=== PATIENT | female | born 1990 | race Caucasian/White ===

== ENCOUNTER 2017-10-04 18:15 | Emergency (ER) | payer MEDICAID ==
[2017-10-04 19:56] LABS: BASOPHILS 0.2 % (0-2); EOSINOPHILS 1.6 % (0-7); HEMATOCRIT 42.3 % (36.0-48.0); HEMOGLOBIN 14.4 g/dL (12-16); IMMATURE GRANULOCYTES 0.3 % (0-5); LYMPHOCYTES 14.9 % (15-50); MEAN PLATELET VOLUME 10.6 fL (7.4-10.4); PLATELET COUNT 283 10x3/uL (130-400); RDW 13.3 % (11.5-14.5); WBC 15.7 10x3/uL (4.8-10.8)
[2017-10-04 20:01] LABS: APPEARANCE CLEAR (CLEAR); COLOR COLORLESS (YELLOW); SPECIFIC GRAVITY 1.005 (1.005-1.020)
[2017-10-04 20:02] LABS: ALBUMIN 4.6 g/dL (3.4-5.0); ALKALINE PHOSPHATASE 65 U/L (46-116); ALT (SGPT) 20 U/L (10-68); BILIRUBIN NEGATIVE (NEGATIVE); C-REACTIVE PROTEIN 0.5 mg/dL (0.0-0.9); CALC OSMOLALITY 281 mosm/kg (275-300); CALCIUM 9.9 mg/dL (8.5-10.1); CARBON DIOXIDE 24.9 mmol/L (21.0-32.0); CHLORIDE - SERUM 102 mmol/L (98-107); CREATININE - SERUM 0.7 mg/dL (0.6-1.3); GLUCOSE 92 mg/dL (74-106); GLUCOSE NEGATIVE (NEGATIVE); KETONE NEGATIVE (NEGATIVE); NITRITE NEGATIVE (NEGATIVE); POTASSIUM - SERUM 3.9 mmol/L (3.5-5.1); PROTEIN NEGATIVE (NEGATIVE); PROTEIN - SERUM 8.3 g/dL (6.4-8.2); SODIUM 141 mmol/L (136-145); UREA NITROGEN 15 mg/dL (7-18); UROBILINOGEN NORMAL (NORMAL); eGFR NON AFRICAN AMERICAN > 90 mL/min (90-120)
[2017-10-04 20:19] LABS: HCG SERUM NEGATIVE (NEGATIVE)
== END 2017-10-04 21:35 | disposition home or self-care (01) ==
LOC: D.ER 18:15
PROVIDERS: Family Medicine
DX: J11.1 Influenza due to unidentified influenza virus with other respiratory manifestations (principal)

== ENCOUNTER 2017-10-06 10:25 | Emergency (ER) | payer MEDICAID | END 2017-10-06 12:13 | disposition home or self-care (01) | LOC: D.ER 10:25 | DX: J45.901 Unspecified asthma with (acute) exacerbation (principal); F17.200 Nicotine dependence, unspecified, uncomplicated ==

== ENCOUNTER → 2017-10-25 14:43 | Outpatient (CLI) | payer MEDICAID | END | disposition home or self-care (01) | LOC: D.RAD 14:43 | DX: R05 Cough (principal) ==

== ENCOUNTER 2017-10-30 20:42 | Emergency (ER) | payer MEDICAID ==
[2017-10-30 21:29] LABS: BASOPHILS 0.2 % (0-2); HEMATOCRIT 39.2 % (36.0-48.0); HEMOGLOBIN 13.4 g/dL (12-16); IMMATURE GRANULOCYTES 0.2 % (0-5); MCHC 34.2 g/dL (31.0-37.0); MCV 93.6 fL (80.0-100.0); MEAN PLATELET VOLUME 9.9 fL (7.4-10.4); MONOCYTES 8.6 % (2-11); PLATELET COUNT 298 10x3/uL (130-400); RBC 4.19 10x6/uL (4.00-5.40); RDW 12.7 % (11.5-14.5); WBC 9.8 10x3/uL (4.8-10.8)
[2017-10-30 21:46] LABS: ALBUMIN 4.2 g/dL (3.4-5.0); ALKALINE PHOSPHATASE 48 U/L (46-116); ALT (SGPT) 23 U/L (10-68); BILIRUBIN - TOTAL 0.23 mg/dL (0.2-1.3); CALC OSMOLALITY 275 mosm/kg (275-300); CALCIUM 9.1 mg/dL (8.5-10.1); CHLORIDE - SERUM 105 mmol/L (98-107); CREATININE - SERUM 0.8 mg/dL (0.6-1.3); GLUCOSE 103 mg/dL (74-106); POTASSIUM - SERUM 3.7 mmol/L (3.5-5.1); PROTEIN - SERUM 7.4 g/dL (6.4-8.2); SODIUM 139 mmol/L (136-145); UREA NITROGEN 8 mg/dL (7-18); eGFR NON AFRICAN AMERICAN > 90 mL/min (90-120)
[2017-10-30 21:57] LABS: APPEARANCE CLEAR (CLEAR); BILIRUBIN NEGATIVE (NEGATIVE); COLOR YELLOW (YELLOW); GLUCOSE NEGATIVE (NEGATIVE); KETONE NEGATIVE (NEGATIVE); NITRITE NEGATIVE (NEGATIVE); PROTEIN NEGATIVE (NEGATIVE); UROBILINOGEN NORMAL (NORMAL)
== END 2017-10-31 01:14 | disposition home or self-care (01) ==
LOC: D.ER 20:42
PROVIDERS: Emergency Medicine
DX: R10.9 Unspecified abdominal pain (principal); F17.200 Nicotine dependence, unspecified, uncomplicated

== ENCOUNTER 2018-05-29 12:16 | Emergency (ER) | payer MEDICAID ==
[~2018-05-29] VITALS: Ht 144.8 cm; Wt 45.5 kg
[2018-05-29 12:26] VITALS: Ht 144.8 cm; Wt 45.5 kg
[2018-05-29 13:10] LABS: BASOPHILS 0.3 % (0-2); EOSINOPHILS 1.3 % (0-7); HEMOGLOBIN 13.8 g/dL (12-16); IMMATURE GRANULOCYTES 0.3 % (0-5); LYMPHOCYTES 24.5 % (15-50); MCH 32.4 pg (26.0-34.0); MCHC 34.5 g/dL (31.0-37.0); MCV 93.9 fL (80.0-100.0); MEAN PLATELET VOLUME 9.8 fL (7.4-10.4); MONOCYTES 8.7 % (2-11); NEUTROPHILS 64.9 % (40-80); PLATELET COUNT 290 10x3/uL (130-400); RBC 4.26 10x6/uL (4.00-5.40); RDW 12.3 % (11.5-14.5); WBC 9.9 10x3/uL (4.8-10.8)
[2018-05-29 13:33] LABS: ALBUMIN 4.1 g/dL (3.4-5.0); ALKALINE PHOSPHATASE 56 U/L (46-116); ALT (SGPT) 22 U/L (10-68); AMYLASE - SERUM 50 U/L (25-115); BILIRUBIN - TOTAL 0.16 mg/dL (0.2-1.3); CALC OSMOLALITY 277 mosm/kg (275-300); CALCIUM 8.7 mg/dL (8.5-10.1); CARBON DIOXIDE 25.9 mmol/L (21.0-32.0); CHLORIDE - SERUM 104 mmol/L (98-107); CREATININE - SERUM 0.8 mg/dL (0.6-1.3); GLUCOSE 95 mg/dL (74-106); LIPASE 98 U/L (73-393); POTASSIUM - SERUM 4.1 mmol/L (3.5-5.1); PROTEIN - SERUM 7.6 g/dL (6.4-8.2); SODIUM 139 mmol/L (136-145); UREA NITROGEN 12 mg/dL (7-18); eGFR NON AFRICAN AMERICAN 90 mL/min (90-120)
[2018-05-29 14:38] LABS: HCG URINE NEGATIVE (NEGATIVE)
[2018-05-29 14:58] LABS: APPEARANCE CLEAR (CLEAR); BILIRUBIN NEGATIVE (NEGATIVE); COLOR STRAW (YELLOW); GLUCOSE NEGATIVE (NEGATIVE); KETONE NEGATIVE (NEGATIVE); NITRITE NEGATIVE (NEGATIVE); PROTEIN NEGATIVE (NEGATIVE); UROBILINOGEN NORMAL (NORMAL)
[2018-05-29 15:02] LABS: BACTERIA FEW /hpf (NONE SEEN); RED CELLS - URINE 0-5 /hpf (0-5); WHITE CELLS - URINE 0-5 /hpf (0-5)
[2018-05-29] MEDS ORDERED: TORADOL10 MG PO (16:03)
[2018-05-29 16:41] VITALS: BP 111/67
== END 2018-05-29 16:42 | disposition home or self-care (01) ==
LOC: D.ER 12:16
PROVIDERS: Family Medicine
DX: R19.7 Diarrhea, unspecified (principal); K60.2 Anal fissure, unspecified

== ENCOUNTER 2019-01-12 23:43 | Emergency (ER) | payer MEDICAID ==
[~2019-01-12] VITALS: Ht 144.8 cm; Wt 52.3 kg
[~2019-01-12 23:43] MED LIST: TORADOL10 MG PO
[2019-01-12 23:54] VITALS: Ht 144.8 cm; Wt 52.3 kg
[2019-01-12] MEDS ORDERED: ALBUTEROL SULF8.5 GM INH (23:55)
[2019-01-13 00:17] LABS: APPEARANCE CLEAR (CLEAR); BILIRUBIN NEGATIVE (NEGATIVE); COLOR YELLOW (YELLOW); GLUCOSE NEGATIVE (NEGATIVE); KETONE NEGATIVE (NEGATIVE); NITRITE NEGATIVE (NEGATIVE); PROTEIN NEGATIVE (NEGATIVE); UROBILINOGEN NORMAL (NORMAL)
[2019-01-13 00:18] LABS: HCG URINE NEGATIVE (NEGATIVE); RED CELLS - URINE 0-5 /hpf (0-5); WHITE CELLS - URINE NSEEN /hpf (0-5)
[2019-01-13] MEDS ORDERED: ZITHROMAX TRI-500 MG PO (01:30)
[2019-01-13 02:08] VITALS: BP 125/56
== END 2019-01-13 02:09 | disposition home or self-care (01) ==
LOC: D.ER 23:43
PROVIDERS: Family Medicine
DX: J45.901 Unspecified asthma with (acute) exacerbation (principal); J01.90 Acute sinusitis, unspecified; R06.02 Shortness of breath

== ENCOUNTER 2019-01-16 23:09 | Emergency (ER) | payer MEDICAID ==
[~2019-01-16] VITALS: Ht 144.8 cm; Wt 52.3 kg
[~2019-01-16 23:09] MED LIST changes: +ALBUTEROL SULF8.5 GM INH; +ZITHROMAX TRI-500 MG PO
[2019-01-16 23:14] VITALS: Ht 144.8 cm; Wt 52.3 kg
[2019-01-17] MEDS ORDERED: AUGMENTIN 875-11 TAB PO (00:20)
[2019-01-17] MEDS ORDERED: TESSALON PERLE100 MG PO (00:20)
[2019-01-17 00:50] VITALS: BP 132/77
== END 2019-01-17 00:50 | disposition home or self-care (01) ==
LOC: D.ER 23:09
DX: J32.9 Chronic sinusitis, unspecified (principal); J45.901 Unspecified asthma with (acute) exacerbation; R05 Cough